=== PATIENT | male | born 1980 | race Caucasian/White ===

== ENCOUNTER 2019-10-29 04:51 | Observation (INO) ==
[2019-10-29] MEDS ORDERED: DiphenhydrAMINE HCL 50 MG/ML VIAL IV STA (05:25)
[2019-10-29 05:36] LABS: Basophils # (auto) 0.02 K/uL (0-0.2); Basophils % (auto) 0.2 %; Eosinophils # (auto) 0.11 K/uL (0-0.5); Hemoglobin 9.4 g/dL (14.0-18.0); Immature Granulocytes # (auto) 0.02 K/uL (0.00-0.02); Immature Granulocytes % (auto) 0.2 %; Lymphocytes % (auto) 29.8 %; Mean Corpuscular Hemoglobin 22.4 pg (25-34); Mean Corpuscular Hgb Conc 29.4 g/dL (32-36); Mean Corpuscular Volume 76.2 fL (80-100); Mean Platelet Volume 10.6 fL (7.4-10.4); Monocytes # (auto) 0.77 K/uL (0.11-0.59); Monocytes % (auto) 7.2 %; Neutrophils # (auto) 6.63 K/uL (1.4-6.5); Neutrophils % (auto) 61.6 %; Platelet Count 300 K/uL (130-400); RDW Coefficient of Variation 14.7 % (11.5-14.5); RDW Standard Deviation 41.2 fL (36.4-46.3); White Blood Count 10.75 K/uL (4.8-10.8)
[2019-10-29 06:05] LABS: Partial Thromboplastin Ratio 0.9; Partial Thromboplastin Time 26.2 Seconds (21.0-31.0); Prothrombin Time 10.5 Seconds (9.0-12.0)
[2019-10-29 06:30] LABS: Alanine Aminotransferase 48 U/L (12-78); Albumin Level 3.1 gm/dl (3.4-5.0); Aspartate Aminotransferase 36 U/L (15-37); BUN Creatinine Ratio 11.1 (10-20); Blood Urea Nitrogen 25 mg/dl (7-18); Carbon Dioxide 23 mmol/L (21-32); Chloride 111 mmol/L (98-107); Creatinine Clr Calc Pharmacy 22.4 ml/min; Est GFR (African American) 40.1; Est GFR (Non-African American) 34.6; Glucose 104 mg/dl (70-99); Lipase 185 U/L (73-393); Potassium 4.1 mmol/L (3.5-5.1); Sodium 140 mmol/L (136-145)
--- NOTE | 2019-10-29 06:31 | XRay Report ---
XR chest 1V portable CLINICAL HISTORY: Chest Pain dyspnea COMPARISON STUDY: 10/29/2019 FINDINGS: The bones soft tissues and hemidiaphragms are normal. The cardiomediastinal silhouette is n ormal. The lungs are clear. The pulmonary vasculature is normal. IMPRESSION: Negative chest. ACT 112: Negative or not required by law. The above report was generated using voice recognition software. It may contain grammatical, syntax or spelling errors. Electronically signed by: Pernell Ruth M.D. 10/29/2019 6:30 AM
[2019-10-29 06:35] LABS: Albumin Globulin Ratio 0.7 (0.9-2); Alkaline Phosphatase 86 U/L (45-117); Bilirubin,Total 0.1 mg/dl (0.2-1); Globulin 4.7 gm/dl (2.5-4.0); Total Protein 7.8 gm/dl (6.4-8.2); Troponin I < 0.015 ng/ml (0-0.045)
--- NOTE | 2019-10-29 06:41 | Emergency Department Note ---
Impression & Plan Substernal chest pain, Allergic reaction ED Provider Note NAME: KHUSHBOO ADHIKARI AGE: 39 SEX: M ARRIVES VIA: Family Vehicle INFORMANT: [Patient] ED PROVIDER(S): Bre Amezquita DO CHIEF COMPLAINT: Substernal chest pain PLAN: [facility]: Stable MEDICAL DECISION MAKING: This is a 39-year-old male patient with a history of kidney disease, hypertension hypercholesterolemia who presents to the emergency department with substernal chest pain. Patient had a normal-appearing EKG and negative initial troponin but had significant anemia. The patient was also suffering from a possible allergic reaction as he had significant edema to both eyes. [facility] and [facility] will evaluate for further management. Triage Nursing notes reviewed and agree them. [Prior medical records reviewed] Vital Signs: reviewed and remarkable for mild hypertension Differential diagnosis: Acute allergic reaction, GERD, and NSTEMI; aortic dissection, PE ER treatment provided: IV Benadryl Diagnostics interpreted by me: ECG: Normal sinus rhythm at [address] segment elevation or signs of ischemia. There is no ectopy Cardiac Monitoring: Normal sinus rhythm at a rate of 90 Laboratory studies: [See below] Imaging studies: As per my interpretation Chest x-ray: No acute pulmonary infiltrates or consolidations. There is no cardiomegaly HPI: 39/M arrives for evaluation of chest. The patient awoke from sleep feeling a tight sensation to his face and chin. He then suddenly developed a onset of chest pain or shortness of breath that he described coming in episodes of stabbing and sharp chest discomfort that lasted between 30 and 45 seconds and then it would be continuously dull in nature. He noted that the shortness of breath was very mild. He then looked in the mirror noticed that his eyelids were swollen. After some time and talking to his he noted that his right arm and right leg were numb and tingly all the time but that seems to have subsided. He does describe starting a new medication yesterday-vitamin D. ROS: See above HPI for pertinent positives & negatives. A total of [10] systems reviewed and were otherwise negative. PAST MEDICAL HISTORY:Stage IIIa kidney failure, hypercholesterolemia, hypertension, depression PAST SURGICAL HISTORY:[See Below] FAMILY HISTORY:The patient's uncle had his first myocardial infarction in his 40s SOCIAL HISTORY:Patient lives with his ; the patient does not drink alcohol but does occasionally smoke HOME MEDICATIONS:See list ALLERGIES:See list VITALS:[See Below] PHYSICAL EXAMINATION: HEENT: Head - normocephalic and atraumatic Pupils are equal, round, and reactive to light. Extraocular eye muscles are intact, and sclera are anicteric. Patient has significant edema to both eyelids nose - moist nasal mucosa without discharge. Mouth - moist buccal mucosa. Oropharynx is nonerythematous and there is no tonsillar exudate or edema noted. Neck: Supple; no cervical lymphadenopathy or JVD Heart: Regular rate and rhythm. There is a normal S1 and S2 with no murmurs, clicks, or gallops appreciated. Lungs: Clear to auscultation bilaterally with no wheezes, rales, or rhonchi. Abdomen: Soft, completely nontender, nondistended, with good bowel sounds. There are no palpable pulsatile masses or hepatosplenomegaly. There is no guarding, rigidity, or rebound noted. Extremities: No evidence of cyanosis, clubbing, or edema. There are easily palpable peripheral pulses. Skin: warm and dry with good turgor and no rashes. ED COURSE: Times/Reassessments: 0520: Patient was evaluated in room C9. A complete history and physical was performed. Laboratory studies were drawn as above. An IV lock was initiated and labs are drawn as above. An order was placed for continuous cardiac monitoring. The patient was in a normal sinus rhythm at a rate of 76. The patient had no known COVID risk factors or exposures. A twelve-lead EKG was obtained. A chest x-ray was obtained. The patient was given IV Benadryl. 0705: I reevaluated the patient at this time and his chest pain is completely resolved and the eyelid swelling has significantly improved. Some time talking to the patient about his family history and the symptoms that he presented with today. I felt he would require further inpatient care because of the chest discomfort that he presented with. I would discuss the case with the [facility] hospitalist group and they can evaluate for further management. Bre Amezquita DO Past Med/Surg History Social History Preferred Language: Maltese Communication Ability: Effective Pastoral Worker Required: No Beliefs That Will Affect Care: None Current Living Situation: Spouse Other Information That Helps Us Care for You: No Feels Safe at Home: Yes Safety Concerns: Feels Safe At This Time Smoking Status: Light tobacco smoker Tobacco Type: cigars ; Do You Dip or Chew Tobacco: No ; Second Hand Exposure: No ; Tobacco Cessation Education Requested by Patient: No Hx Alcohol Use: No Hx Substance Use: No Allergies Allergies Allergy/AdvReac Type Severity Reaction Status Date / Time No Known Allergies Allergy Unverified 10/29/19 05:16 Home Meds Home Medications Medication Instructions Recorded Confirmed amlodipine 5 mg PO DAILY 10/29/19 10/29/19 atenolol 50 mg PO DAILY 10/29/19 10/29/19 atorvastatin 20 mg PO HS 10/29/19 10/29/19 cholecalciferol (vitamin D3) 1,250 mcg PO WK 10/29/19 10/29/19 [Decara] docusate sodium [DOK] 100 mg PO DAILY 10/29/19 10/29/19 duloxetine 20 mg PO BID 10/29/19 10/29/19 gabapentin 300 mg PO TID 10/29/19 10/29/19 Previous Rx's Medication Instructions Recorded pantoprazole 40 mg PO QAM 30 Days #30 tab 10/29/19 Results & Data (ED) Vital Signs Vital Signs - 24 hr 10/29/19 04:58 10/29/19 05:15 10/29/19 05:30 Temperature 36.8 C Temperature Source Oral Pulse Rate 77 81 70 Pulse Rate from SpO2 Sensor 73 Respiratory Rate 13 16 18 Blood Pressure 166/110 H 153/104 H 157/104 H Blood Pressure Mean 128 127 112 Pulse Oximetry 97 95 95 Oxygen Delivery Method Room Air Room Air Room Air Sepsis Recent Fever Within 48 Hours No Sepsis New/Unexplained Change in Mental Status No Sepsis Action Taken by Nursing No Action Required 10/29/19 05:36 10/29/19 05:37 10/29/19 05:45 Temperature Temperature Source Pulse Rate 70 86 Pulse Rate from SpO2 Sensor 86 Respiratory Rate 20 21 Blood Pressure 148/106 H Blood Pressure Mean 117 Pulse Oximetry 95 95 96 Oxygen Delivery Method Room Air Room Air Room Air Sepsis Recent Fever Within 48 Hours Sepsis New/Unexplained Change in Mental Status Sepsis Action Taken by Nursing 10/29/19 06:00 10/29/19 06:16 10/29/19 06:30 Temperature Temperature Source Pulse Rate 90 94 H 75 Pulse Rate from SpO2 Sensor 88 94 H 76 Respiratory Rate 18 17 24 Blood Pressure 135/73 138/89 139/88 Blood Pressure Mean 95 107 97 Pulse Oximetry 96 96 96 Oxygen Delivery Method Room Air Room Air Room Air Sepsis Recent Fever Within 48 Hours Sepsis New/Unexplained Change in Mental Status Sepsis Action Taken by Nursing 10/29/19 06:59 10/29/19 07:00 10/29/19 07:02 Temperature Temperature Source Pulse Rate 80 77 76 Pulse Rate from SpO2 Sensor 80 78 78 Respiratory Rate 22 20 16 Blood Pressure 129/83 122/80 Blood Pressure Mean 90 92 Pulse Oximetry 96 96 95 Oxygen Delivery Method Room Air Room Air Sepsis Recent Fever Within 48 Hours Sepsis New/Unexplained Change in Mental Status Sepsis Action Taken by Nursing 10/29/19 07:35 10/29/19 08:00 10/29/19 08:01 Temperature Temperature Source Pulse Rate 87 75 74 Pulse Rate from SpO2 Sensor 78 72 Respiratory Rate 16 22 19 Blood Pressure 120/68 Blood Pressure Mean 79 Pulse Oximetry 95 96 Oxygen Delivery Method Room Air Room Air Sepsis Recent Fever Within 48 Hours Sepsis New/Unexplained Change in Mental Status Sepsis Action Taken by Nursing 10/29/19 08:02 Temperature Temperature Source Pulse Rate 68 Pulse Rate from SpO2 Sensor 67 Respiratory Rate 20 Blood Pressure Blood Pressure Mean Pulse Oximetry 93 Oxygen Delivery Method Sepsis Recent Fever Within 48 Hours Sepsis New/Unexplained Change in Mental Status Sepsis Action Taken by Nursing Laboratory Data Result diagrams: 10/29/19 05:11 10/29/19 05:38 Lab Results 10/29/19 10/29/19 10/29/19 Range/Units 05:11 05:38 05:38 WBC 10.75 (4.8-10.8) K/uL RBC 4.20 L (4.7-6.1) M/uL Hgb 9.4 L (14.0-18.0) g/dL Hct 32.0 L (42-52) % MCV 76.2 L (80-100) fL MCH 22.4 L (25-34) pg MCHC 29.4 L (32-36) g/dL RDW Std Deviation 41.2 (36.4-46.3) fL RDW Coeff of Lesvia 14.7 H (11.5-14.5) % Plt Count 300 (130-400) K/uL MPV 10.6 H (7.4-10.4) fL Immature Gran % (Auto) 0.2 % Neut % (Auto) 61.6 % Lymph % (Auto) 29.8 % Collier % (Auto) 7.2 % Eos % (Auto) 1.0 % Baso % (Auto) 0.2 % Immature Gran # (Auto) 0.02 (0.00-0.02) K/uL Neut # (Auto) 6.63 H (1.4-6.5) K/uL Lymph # (Auto) 3.20 (1.2-3.4) K/uL Collier # (Auto) 0.77 H (0.11-0.59) K/uL Eos # (Auto) 0.11 (0-0.5) K/uL Baso # (Auto) 0.02 (0-0.2) K/uL PT 10.5 (9.0-12.0) Seconds INR 1.0 (0.9-1.1) APTT 26.2 (21.0-31.0) Seconds PTT Ratio 0.9 Sodium 140 (136-145) mmol/L Potassium 4.1 (3.5-5.1) mmol/L Chloride 111 H (98-107) mmol/L Carbon Dioxide 23 (21-32) mmol/L Anion Gap 6.0 (3-11) BUN 25 H (7-18) mg/dl Creatinine 2.28 H (0.6-1.4) mg/dl Est Cr Clr Drug Dosing 22.4 ml/min Est GFR ( Amer) 40.1 Est GFR (Non-Af Amer) 34.6 BUN/Creatinine Ratio 11.1 (10-20) Glucose 104 H (70-99) mg/dl Calcium 9.0 (8.5-10.1) mg/dl Total Bilirubin 0.1 L (0.2-1) mg/dl AST 36 (15-37) U/L ALT 48 (12-78) U/L Alkaline Phosphatase 86 (45-117) U/L Troponin I < 0.015 (0-0.045) ng/ml Total Protein 7.8 (6.4-8.2) gm/dl Albumin 3.1 L (3.4-5.0) gm/dl Globulin 4.7 H (2.5-4.0) gm/dl Albumin/Globulin Ratio 0.7 L (0.9-2) Triglycerides (0-150) mg/dl Cholesterol (0-200) mg/dl LDL Cholesterol, Calc mg/dl VLDL Cholesterol, Calc mg/dl HDL Cholesterol mg/dl Cholesterol/HDL Ratio Lipase 185 (73-393) U/L 10/29/19 Range/Units 05:38 WBC (4.8-10.8) K/uL RBC (4.7-6.1) M/uL Hgb (14.0-18.0) g/dL Hct (42-52) % MCV (80-100) fL MCH (25-34) pg MCHC (32-36) g/dL RDW Std Deviation (36.4-46.3) fL RDW Coeff of Lesvia (11.5-14.5) % Plt Count (130-400) K/uL MPV (7.4-10.4) fL Immature Gran % (Auto) % Neut % (Auto) % Lymph % (Auto) % Collier % (Auto) % Eos % (Auto) % Baso % (Auto) % Immature Gran # (Auto) (0.00-0.02) K/uL Neut # (Auto) (1.4-6.5) K/uL Lymph # (Auto) (1.2-3.4) K/uL Collier # (Auto) (0.11-0.59) K/uL Eos # (Auto) (0-0.5) K/uL Baso # (Auto) (0-0.2) K/uL PT (9.0-12.0) Seconds INR (0.9-1.1) APTT (21.0-31.0) Seconds PTT Ratio Sodium (136-145) mmol/L Potassium (3.5-5.1) mmol/L Chloride (98-107) mmol/L Carbon Dioxide (21-32) mmol/L Anion Gap (3-11) BUN (7-18) mg/dl Creatinine (0.6-1.4) mg/dl Est Cr Clr Drug Dosing ml/min Est GFR ( Amer) Est GFR (Non-Af Amer) BUN/Creatinine Ratio (10-20) Glucose (70-99) mg/dl Calcium (8.5-10.1) mg/dl Total Bilirubin (0.2-1) mg/dl AST (15-37) U/L ALT (12-78) U/L Alkaline Phosphatase (45-117) U/L Troponin I (0-0.045) ng/ml Total Protein (6.4-8.2) gm/dl Albumin (3.4-5.0) gm/dl Globulin (2.5-4.0) gm/dl Albumin/Globulin Ratio (0.9-2) Triglycerides 221 H (0-150) mg/dl Cholesterol 147 (0-200) mg/dl LDL Cholesterol, Calc 66 mg/dl VLDL Cholesterol, Calc 44 mg/dl HDL Cholesterol 37 mg/dl Cholesterol/HDL Ratio 4 Lipase (73-393) U/L Administered Medications Discontinued Medications Amlodipine Besylate (Norvasc) 5 mg PO DAILY [facility] Stop: 11/28/19 08:59 Last Admin: 10/29/19 11:12 Dose: 5 mg Documented by: [id number] Atenolol (Tenormin) 50 mg PO DAILY [facility] Stop: 11/28/19 08:59 Last Admin: 10/29/19 11:12 Dose: 50 mg Documented by: [id number] Atropine Sulfate (Atropine Sulfate) Confirm Administered Dose 2 mg IV .STK-MED ONE Stop: 10/29/19 12:34 Last Admin: 10/29/19 15:08 Dose: Not Given Documented by: [id number] Diphenhydramine HCl (Benadryl) 50 mg IV NOW STA Stop: 10/29/19 05:26 Last Admin: 10/29/19 05:29 Dose: 50 mg Documented by: [id number] Dobutamine HCl (Dobutrex) Confirm Administered Dose 250 mg IV .STK-MED ONE Stop: 10/29/19 12:34 Last Admin: 10/29/19 15:08 Dose: Not Given Documented by: [id number] Duloxetine HCl (Cymbalta) 20 mg PO BID [facility] Stop: 11/28/19 08:59 Last Admin: 10/29/19 11:12 Dose: 20 mg Documented by: [id number] Gabapentin (Neurontin) 300 mg PO TID [facility] Stop: 11/28/19 08:59 Last Admin: 10/29/19 15:31 Dose: 300 mg Documented by: [id number] Admin: 10/29/19 11:12 Dose: 300 mg Documented by: [id number] Metoprolol Tartrate (Lopressor) Confirm Administered Dose 10 mg IV .STK-MED ONE Stop: 10/29/19 12:34 Last Admin: 10/29/19 15:09 Dose: Not Given Documented by: [id number] [facility]op[facility] S[facility]ix) [facility] Stop: 11/28/19 08:59 Last Admin: 10/29/19 11:13 Dose: 40 mg Documented by: [id number] Discharge Plan Visit Data *Final* Discharge Date/Time: 10/29/19 09:49 Chief Complaint: Chest Pain Stated Complaint: CHEST PAIN ED Provider: Bre Amezquita Discharge Problem: Substernal chest pain, Allergic reaction Patient Disposition: Admitted As Inpatient Condition: Good Discharge Instructions Interventions: ED Discharge Assessment Last Done: 10/29/19 09:49 Discharge Problem: Allergic reaction Qualifiers: Encounter type: initial encounter Qualified Code(s): T78.40XA - Allergy, unspecified, initial encounter
--- NOTE | 2019-10-29 07:22 | Electrocardiogram Report ---
Test Reason : Blood Pressure : / mmHG Vent. Rate : 077 BPM Atrial Rate : 077 BPM P-R Int : 160 ms QRS Dur : 096 ms QT Int : 386 ms P-R-T Axes : -07 019 030 degrees QTc Int : 436 ms Normal sinus rhythm Normal ECG No previous ECGs available Confirmed by Hayder Rowan ([id number]) on 10/29/2019 7:21:35 AM Referred By: REFERRED SELF Confirmed By:Jeremiah Rowan
--- NOTE | 2019-10-29 08:04 | History & Physical Report ---
Date of Service October 29, 2019 Assessment & Plan (1) Chest pain: -39 yo male Patient woke up overnight with chest pain around 2 PM. he reports that sharpness of the pain was alleviated but there was this pressure that remained which persisted and lasted until ED presentation. Also associated symptom of right sided numbness or tingling but this also resolved when in the ED. In the ED, patient had nonischemic appearing EKG with initial negative troponin. He was only given IV Benadryl because of some concern for puffiness of the eye as if some allergy. But patient normal in facial appearance and no pain and Paresthesia symptoms when seen by hospitalist around 7:30 AM. Patient reports history of acid reflux but no vomiting at home. no nausea. no shortness of breath. no fever. no dizziness. no headache. -Family History of uncle with myocardial infarction in the ages of 40s -trend troponin, monitor on telemetry, obtain echocardiogram, cardiology consult -checked lipid panel with LDL 67, continue home dose atorvastatin 20 mg daily Gastroesophageal reflux diseas -he takes over the counter Prilosec at home -continue as pantoprazole while in the hospital Pre-diabetes -reports pred-diabetes, not on diabetes medications at home -check HbA1c Neuropathy -takes gabapentin 300 mg TID primarily for neuropathy of foot -unclear as to cause of right side paraesthesia symptoms when he woke with chest pain. no current right arm symptoms Depression -continue home dose duloxetine Hypertension -continue dose amlodipine 5 mg daily atenolol 500 mg daily Obesity with BMI 43.7 -on statin Tobacco Use -smokes 1 cigar daily, will counselor marriage and family on cutting back use Marijuana Use -reports last marijuana use was weeks ago and does not seem to be cause of recent symptoms at home DVT ppx: SCDs History of Present Illness 39 yo Male Patient woke up overnight with chest pain around 2 PM. he reports that sharpness of the pain was alleviated but there was this pressure that remained which persisted and lasted until ED presentation. Also associated symptom of right sided numbness or tingling but this also resolved when in the ED. In the ED, patient had nonischemic appearing EKG with initial negative troponin. He was only given IV Benadryl because of some concern for puffiness of the eye as if some allergy. But patient normal in facial appearance and no pain and Paresthesia symptoms when seen by hospitalist around 7:30 AM. Patient reports history of acid reflux but no vomiting at home. no nausea. no shortness of breath. no fever. no dizziness. no headache. Patient reports he smokes 1 cigar a day. Last marijuana use was weeks ago. He rarely drinks alcohol Family History of uncle with myocardial infarction in the ages of 40s Allergy History: patient denies known allergies to any particular foods or medications Primary Care Provider: Prasad Freeman MD Allergies Allergy/AdvReac Type Severity Reaction Status Date / Time No Known Allergies Allergy Unverified 10/29/19 05:16 Home Medications Home Medications Medication Instructions Recorded Confirmed Type amlodipine 5 mg PO DAILY 10/29/19 10/29/19 History atenolol 50 mg PO DAILY 10/29/19 10/29/19 History atorvastatin 20 mg PO HS 10/29/19 10/29/19 History cholecalciferol (vitamin D3) 1,250 mcg PO WK 10/29/19 10/29/19 History [Decara] docusate sodium [DOK] 100 mg PO DAILY 10/29/19 10/29/19 History duloxetine 20 mg PO BID 10/29/19 10/29/19 History gabapentin 300 mg PO TID 10/29/19 10/29/19 History Past Med/Surg History Social History Preferred Language: Syriac Communication Ability: Effective Monument Stonecutter Required: No Beliefs That Will Affect Care: None Current Living Situation: Spouse Other Information That Helps Us Care for You: No Feels Safe at Home: Yes Safety Concerns: Feels Safe At This Time Smoking Status: Light tobacco smoker Tobacco Type: cigars ; Do You Dip or Chew Tobacco: No ; Second Hand Exposure: No ; Tobacco Cessation Education Requested by Patient: No Hx Alcohol Use: No Hx Substance Use: No Review of Systems Review of Systems: All systems reviewed & are unremarkable except as noted in Subjective Physical Exam Constitutional: + obese Eyes: PERRL, conjunctivae normal, anicteric sclerae EOM intact bilaterally ENMT: external ear and nose normal, oropharynx normal Neck: normal visual inspection Respiratory: normal respiratory effort, lungs clear to auscultation Cardiovascular: Rate/Rhythm: regular rate and regular rhythm Gastrointestinal (Abdomen): normal bowel sounds, soft, nontender, no h epatosplenomegaly Musculoskeletal: Head/Neck/Chest: normocephalic and head atraumatic Neurologic: PERRL, EOMI, accommodation nl, no face palsy, no dysarthria moves all extremities Psychiatric: A+Ox3, euthymic affect Results & Data Results & Data ([facility]) Vital Signs (Past 12 Hours) Vital Signs Temp Pulse Resp BP Pulse Ox 10/29/19 06:30 75 24 139/88 96 10/29/19 06:16 94 H 17 138/89 96 10/29/19 06:00 90 18 135/73 96 10/29/19 05:45 86 21 148/106 H 96 10/29/19 05:37 95 10/29/19 05:36 70 20 95 10/29/19 05:30 70 18 157/104 H 95 10/29/19 05:15 81 16 153/104 H 95 10/29/19 04:58 36.8 C 77 13 166/110 H 97
[2019-10-29] MEDS ORDERED: ACETAMINOPHEN 325 MG TAB PO PRN (08:06)
[2019-10-29] MEDS ORDERED: MoRPHine SULFATE 2 MG/ML CARP IV PRN (08:06)
[2019-10-29 08:31] LABS: Chol HDL Ratio 4; Cholesterol 147 mg/dl (0-200); HDL Cholesterol 37 mg/dl; LDL Cholesterol Calculated 66 mg/dl; Triglycerides 221 mg/dl (0-150); VLDL Cholesterol 44 mg/dl
[2019-10-29] MEDS ORDERED: ATENOLOL 50 MG TABLET PO SCH (09:00)
[2019-10-29] MEDS ORDERED: DULOXETINE HCL 20 MG CAP PO SCH (09:00)
[2019-10-29] MEDS ORDERED: AMLODIPINE BESYLATE 5 MG TAB PO SCH (09:00)
[2019-10-29] MEDS ORDERED: PANTOprazole 40 MG TAB PO SCH (09:00)
[2019-10-29] MEDS: GABAPENTIN 300 MG CAP PO SCH ×2 (11:12→15:31)
[2019-10-29 12:18] LABS: Estimated Average Glucose 126 mg/dl
[2019-10-29] MEDS ORDERED: ATROPINE SULFATE 0.1 MG/ML 10ML SYR IV ONE (12:33)
[2019-10-29] MEDS ORDERED: METOPROLOL TARTRATE 1 MG/ML VIAL IV ONE (12:33)
[2019-10-29] MEDS ORDERED: DOBUTamine HCL 12.5 MG/ML 20 ML VIAL IV ONE (12:33)
--- NOTE | 2019-10-29 12:53 | Cardiology Consultation ---
Date of Consultation October 29, 2019 Assessment & Plan (1) Chest pain: The patient underwent a dobutamine stress echocardiogram that was nonischemic. He had a normal blood pressure response to dobutamine as well. No further cardiac testing or intervention is necessary at this time. Okay to discharge to home from a cardiac standpoint. No outpatient cardiac follow-up necessary but recommended he continue to follow- up with his PCP, nephrology and sleep medicine as recommended. (2) CKD (chronic kidney disease): (3) SHERLY (obstructive sleep apnea): (4) Morbid obesity: (5) Anemia of chronic disease: (6) Peripheral neuropathy: History of Present Illness Reason for Consultation: Chest pain Requesting Physician: Dr. Freeman Attending Physician: Stas Freeman MD History of Present Illness I saw Mr. Owusu in consultation today October 29, 2019. He is a very pleasant 39-year-old gentleman who presented to [facility] on 10/29/2019 with complaints of chest pain. He states he was in his normal state of health prior to going to bed last evening but then woke at 3 AM with a sharp stabbing chest pain. He states it was midsternal and seemed to radiate across his right precordium. This was associated with some right arm numbness and tingling. He denied any associated diaphoresis, shortness of breath, nausea, lightheadedness, dizziness or syncope. He denies any previously similar episodes. He states that when the discomfort was occurring he was rubbing his chest to make it feel little bit better. Upon arrival to the emergency department his discomfort has resolved on its own. His initial work-up was unremarkable and after a second negative troponin a dobutamine stress echocardiogram was performed. Allergies Allergy/AdvReac Type Severity Reaction Status Date / Time No Known Allergies Allergy Unverified 10/29/19 05:16 Home Medications Home Medications Medication Instructions Recorded Confirmed Type amlodipine 5 mg PO DAILY 10/29/19 10/29/19 History atenolol 50 mg PO DAILY 10/29/19 10/29/19 History atorvastatin 20 mg PO HS 10/29/19 10/29/19 History cholecalciferol (vitamin D3) 1,250 mcg PO WK 10/29/19 10/29/19 History [Decara] docusate sodium [DOK] 100 mg PO DAILY 10/29/19 10/29/19 History duloxetine 20 mg PO BID 10/29/19 10/29/19 History gabapentin 300 mg PO TID 10/29/19 10/29/19 History Patient History Social History Preferred Language: [place]ib[place]ian Communication Ability: Effective Customs Verifier Required: No Beliefs That Will Affect Care: None Current Living Situation: Spouse Other Information That Helps Us Care for You: No Feels Safe at Home: Yes Safety Concerns: Feels Safe At This Time Smoking Status: Light tobacco smoker Tobacco Type: cigars ; Do You Dip or Chew Tobacco: No ; Second Hand Exposure: No ; Tobacco Cessation Education Requested by Patient: No Hx Alcohol Use: No Hx Substance Use: No Review of Systems Review of Systems: All systems reviewed & are unremarkable except as noted in HPI & below Physical Exam Physical Exam: General: Awake, alert and oriented x 3. No acute distress. HEENT: Normocephalic, atraumatic. Pupils equal, round and reactive to light and accommodation. Extraocular muscles are intact. Anicteric sclera. Moist mucous membranes. Neck: No JVD. No bruit. Cardiovascular: Regular. Positive S-4. Normal S-1 and S-2. No S-3. No murmurs or rubs. Pulmonary: Clear to auscultation B/L. No rales, rhonchi or wheezing Abdomen: Bowel sounds x 4, soft. No rebound, guarding or tenderness. No organomegaly. Extremities: No clubbing, cyanosis or edema. +2 pedal pulses bilaterally. Skin: Warm and dry. Results & Data ([facility]) Vital Signs (Past 12 Hours) Vital Signs Temp Pulse Pulse Resp BP BP Pulse Ox 10/29/19 11:35 36.6 C 72 18 156/92 H 97 10/29/19 10:00 36.7 C 74 18 144/89 H 95 10/29/19 09:30 22 107/66 99 10/29/19 09:01 80 23 135/81 98 10/29/19 09:00 68 18 10/29/19 08:30 88 18 127/73 95 10/29/19 08:02 68 20 93 10/29/19 08:01 74 19 120/68 96 10/29/19 08:00 75 22 95 10/29/19 07:35 87 16 10/29/19 07:02 76 16 95 10/29/19 07:00 77 20 122/80 96 10/29/19 06:59 80 22 129/83 96 10/29/19 06:30 75 24 139/88 96 10/29/19 06:16 94 H 17 138/89 96 10/29/19 06:00 90 18 135/73 96 10/29/19 05:45 86 21 148/106 H 96 10/29/19 05:37 95 10/29/19 05:36 70 20 95 10/29/19 05:30 70 18 157/104 H 95 10/29/19 05:15 81 16 153/104 H 95 10/29/19 04:58 36.8 C 77 13 166/110 H 97 Laboratory Results Laboratory Results - last 24 hr 10/29/19 10/29/19 10/29/19 05:11 05:38 05:38 WBC 10.75 RBC 4.20 L Hgb 9.4 L Hct 32.0 L MCV 76.2 L MCH 22.4 L MCHC 29.4 L RDW Std Deviation 41.2 RDW Coeff of Lesvia 14.7 H Plt Count 300 MPV 10.6 H Immature Gran % (Auto) 0.2 Neut % (Auto) 61.6 Lymph % (Auto) 29.8 [place] % (Auto) 7.2 Eos % (Auto) 1.0 Baso % (Auto) 0.2 Immature Gran # (Auto) 0.02 Neut # (Auto) 6.63 H Lymph # (Auto) 3.20 [place] # (Auto) 0.77 H Eos # (Auto) 0.11 Baso # (Auto) 0.02 PT 10.5 INR 1.0 APTT 26.2 PTT Ratio 0.9 Sodium 140 Potassium 4.1 Chloride 111 H Carbon Dioxide 23 Anion Gap 6.0 BUN 25 H Creatinine 2.28 H Est Cr Clr Drug Dosing 22.4 Est GFR ( Amer) 40.1 Est GFR (Non-Af Amer) 34.6 BUN/Creatinine Ratio 11.1 Glucose 104 H Estimat Average Glucose Hemoglobin A1c Calcium 9.0 Total Bilirubin 0.1 L AST 36 ALT 48 Alkaline Phosphatase 86 Troponin I < 0.015 Total Protein 7.8 Albumin 3.1 L Globulin 4.7 H Albumin/Globulin Ratio 0.7 L Triglycerides Cholesterol LDL Cholesterol, Calc VLDL Cholesterol, Calc HDL Cholesterol Cholesterol/HDL Ratio Lipase 185 10/29/19 10/29/19 10/29/19 05:38 11:47 11:47 WBC RBC Hgb Hct MCV MCH MCHC RDW Std Deviation RDW Coeff of Lesvia Plt Count MPV Immature Gran % (Auto) Neut % (Auto) Lymph % (Auto) [place] % (Auto) Eos % (Auto) Baso % (Auto) Immature Gran # (Auto) Neut # (Auto) Lymph # (Auto) [place] # (Auto) Eos # (Auto) Baso # (Auto) PT INR APTT PTT Ratio Sodium Potassium Chloride Carbon Dioxide Anion Gap BUN Creatinine Est Cr Clr Drug Dosing Est GFR ( Amer) Est GFR (Non-Af Amer) BUN/Creatinine Ratio Glucose Estimat Average Glucose 126 Hemoglobin A1c 6.0 H Calcium Total Bilirubin AST ALT Alkaline Phosphatase Troponin I < 0.015 Total Protein Albumin Globulin Albumin/Globulin Ratio Triglycerides 221 H Cholesterol 147 LDL Cholesterol, Calc 66 VLDL Cholesterol, Calc 44 HDL Cholesterol 37 Cholesterol/HDL Ratio 4 Lipase Medications Administered Current Inpatient Medications Acetaminophen (Tylenol) 325 mg PO Q6H PRN PRN Reason: Pain or Fever Stop: 11/28/19 08:14 Amlodipine Besylate (Norvasc) 5 mg PO DAILY KRIS Stop: 11/28/19 08:59 Last Admin: 10/29/19 11:12 Dose: 5 mg Documented by: Atenolol (Tenormin) 50 mg PO DAILY KRIS Stop: 11/28/19 08:59 Last Admin: 10/29/19 11:12 Dose: 50 mg Documented by: Atorvastatin Calcium (Lipitor) 20 mg PO HS KRIS Stop: 11/28/19 20:59 Duloxetine HCl (Cymbalta) 20 mg PO BID KRIS Stop: 11/28/19 08:59 Last Admin: 10/29/19 11:12 Dose: 20 mg Documented by: Gabapentin (Neurontin) 300 mg PO TID KRIS Stop: 11/28/19 08:59 Last Admin: 10/29/19 11:12 Dose: 300 mg Documented by: Morphine Sulfate (Morphine Sulfate) 2 mg IV Q8H PRN PRN Reason: severe chest pain Stop: 11/12/19 08:05 Pantoprazole Sodium (Protonix) 40 mg PO QAM KRIS Stop: 11/28/19 08:59 Last Admin: 10/29/19 11:13 Dose: 40 mg Documented by:
--- NOTE | 2019-10-29 17:58 | Hospitalist Progress Note ---
Date of Service October 29, 2019 Assessment & Plan (1) Chest pain: -39 yo male Patient woke up overnight with chest pain around 2 PM. he reports that sharpness of the pain was alleviated but there was this pressure that remained which persisted and lasted until ED presentation. Also associated symptom of right sided numbness or tingling but this also resolved when in the ED. In the ED, patient had nonischemic appearing EKG with initial negative troponin. He was only given IV Benadryl because of some concern for puffiness of the eye as if some allergy. But patient normal in facial appearance and no pain and Paresthesia symptoms when seen by hospitalist around 7:30 AM. Patient reports history of acid reflux but no vomiting at home. no nausea. no shortness of breath. no fever. no dizziness. no headache. -Family History of uncle with myocardial infarction in the ages of 40s Chest pain Gastroesophageal reflux disease hypertension Chronic Kidney Disease Stage III -trend troponin, monitor on telemetry, obtain echocardiogram, cardiology consult -checked lipid panel with LDL 67, continue home dose atorvastatin 20 mg daily The patient underwent a dobutamine stress echocardiogram that was nonischemic. He had a normal blood pressure response to dobutamine as well. No further cardiac testing or intervention is necessary at this time. Okay to discharge to home from a cardiac standpoint. No outpatient cardiac follow-up necessary but recommended he continue to follow- up with his PCP, nephrology and sleep medicine as recommended. Gastroesophageal reflux disease -he takes over the counter Prilosec at home -continue as pantoprazole while in the hospital discharge medication of pantoprazole sent electronically to [address] [address] Pre-diabetes -reports pred-diabetes, not on diabetes medications at home -check HbA1c Neuropathy -takes gabapentin 300 mg TID primarily for neuropathy of foot -unclear as to cause of right side paraesthesia symptoms when he woke with chest pain. no current right arm symptoms Depression -continue home dose duloxetine Hypertension -continue dose amlodipine 5 mg daily atenolol 50 mg daily Obesity with BMI 43.7 -on statin Tobacco Use -smokes 1 cigar daily, will breastfeeding peer counselor on cutting back use Marijuana Use -reports last marijuana use was weeks ago and does not seem to be cause of recent symptoms at home DVT ppx: SCDs Admission and Anticipated Discharge Date Admission Date: October 29, 2019 Review of Systems Review of Systems: All systems reviewed & are unremarkable except as noted in Subjective Physical Exam Constitutional: + obese Eyes: PERRL, conjunctivae normal, anicteric sclerae EOM intact bilaterally ENMT: external ear and nose normal, oropharynx normal Neck: normal visual inspection Respiratory: normal respiratory effort, lungs clear to auscultation Cardiovascular: Rate/Rhythm: regular rate and regular rhythm Gastrointestinal (Abdomen): normal bowel sounds, soft, nontender, no hepatosplenomegaly Musculoskeletal: Head/Neck/Chest: normocephalic and head atraumatic Neurologic: PERRL, EOMI, accommodation nl, no face palsy, no dysarthria moves all extremities Psychiatric: A+Ox3, euthymic affect Results & Data Results & Data ([facility]) Vital Signs (Past 12 Hours) Vital Signs Temp Pulse Pulse Pulse Resp BP BP 10/29/19 16:14 71 10/29/19 15:00 36.6 C 73 18 145/88 H 10/29/19 11:35 36.6 C 72 18 156/92 H 10/29/19 10:00 36.7 C 74 18 144/89 H 10/29/19 09:30 22 107/66 10/29/19 09:01 80 23 135/81 10/29/19 09:00 68 18 10/29/19 08:30 88 18 127/73 10/29/19 08:02 68 20 10/29/19 08:01 74 19 120/68 10/29/19 08:00 75 22 10/29/19 07:35 87 16 10/29/19 07:02 76 16 10/29/19 07:00 77 20 122/80 10/29/19 06:59 80 22 129/83 10/29/19 06:30 75 24 139/88 10/29/19 06:16 94 H 17 138/89 10/29/19 06:00 90 18 135/73 Pulse Ox 10/29/19 16:14 10/29/19 15:00 96 10/29/19 11:35 97 10/29/19 10:00 95 10/29/19 09:30 99 10/29/19 09:01 98 10/29/19 09:00 10/29/19 08:30 95 10/29/19 08:02 93 10/29/19 08:01 96 10/29/19 08:00 95 10/29/19 07:35 10/29/19 07:02 95 10/29/19 07:00 96 10/29/19 06:59 96 10/29/19 06:30 96 10/29/19 06:16 96 10/29/19 06:00 96
--- NOTE | 2019-10-29 18:05 | Discharge Summary ---
Date of Service October 29, 2019 Admission HPI Per Admitting Provider 39 yo Male Patient woke up overnight with chest pain around 2 PM. he reports that sharpness of the pain was alleviated but there was this pressure that remained which persisted and lasted until ED presentation. Also associated symptom of right sided numbness or tingling but this also resolved when in the ED. In the ED, patient had nonischemic appearing EKG with initial negative troponin. He was only given IV Benadryl because of some concern for puffiness of the eye as if some allergy. But patient normal in facial appearance and no pain and Paresthesia symptoms when seen by hospitalist around 7:30 AM. Patient repo rts history of acid reflux but no vomiting at home. no nausea. no shortness of breath. no fever. no dizziness. no headache. Patient reports he smokes 1 cigar a day. Last marijuana use was weeks ago. He rarely drinks alcohol Family History of uncle with myocardial infarction in the ages of 40s Allergy History: patient denies known allergies to any particular foods or medications Principal Diagnosis Chest pain Gastroesophageal reflux disease hypertension Chronic Kidney Disease Stage III Discharge Exam Constitutional WD/WN, vitals as above Eyes PERRL, conjunctivae normal, anicteric sclerae EOM intact bilaterally ENMT external ear and nose normal, oropharynx normal Neck trachea midline, no thyromegaly normal visual inspection Respiratory normal respiratory effort, lungs clear to auscultation Cardiovascular Rate/Rhythm: regular rate and regular rhythm Gastrointestinal (Abdomen) normal bowel sounds, soft, nontender, no hepatosplenomegaly Musculoskeletal Head/Neck/Chest: normocephalic and head atraumatic Neurologic PERRL, EOMI, accommodation nl, no face palsy, no dysarthria CN's II-XI intact bilaterally Psychiatric A+Ox3, euthymic affect Discharge Data Allergies Allergy/AdvReac Type Severity Reaction Status Date / Time No Known Allergies Allergy Unverified 10/29/19 05:16 Consultations 10/29/19 07:28 ED Decision to Admit Stat 10/29/19 08:04 Consult Cardiology Routine Hospital Course (1) Chest pain: -39 yo male Patient woke up overnight with chest pain around 2 PM. he reports that sharpness of the pain was alleviated but there was this pressure that remained which persisted and lasted until ED presentation. Also associated symptom of right sided numbness or tingling but this also resolved when in the ED. In the ED, patient had nonischemic appearing EKG with initial negative troponin. He was only given IV Benadryl because of some concern for puffiness of the eye as if some allergy. But patient normal in facial appearance and no pain and Paresthesia symptoms when seen by hospitalist around 7:30 AM. Patient reports history of acid reflux but no vomiting at home. no nausea. no shortness of breath. no fever. no dizziness. no headache. -Family History of uncle with myocardial infarction in the ages of 40s -checked lipid panel with LDL 67, continue home dose atorvastatin 20 mg daily -no acute telemetry events, troponins bnegative -The patient underwent a dobutamine stress echocardiogram that was nonischemic. He had a normal blood pressure response to dobutamine as well. No further cardiac testing or intervention is necessary at this time. Okay to discharge to home from a cardiac standpoint. No outpatient cardiac follow-up necessary but recommended he continue to follow- up with his PCP, nephrology and sleep medicine as recommended. Gastroesophageal reflux disease -he takes over the counter Prilosec at home -continue as pantoprazole while in the hospital, discharge medication of pantoprazole sent electronically to [address] [id number] [address] of orilosec CKD stage III -chronic Pre-diabetes -reports pred-diabetes, not on diabetes medications at home -HbA1c 6 Neuropathy -takes gabapentin 300 mg TID primarily for neuropathy of foot -unclear as to cause of right side paraesthesia symptoms when he woke with chest pain. no current right arm symptoms Depression -continue home dose duloxetine Hypertension -continue dose amlodipine 5 mg daily atenolol 50 mg daily Obesity with BMI 43.7 -on statin Tobacco Use -smokes 1 cigar daily, he is counseled to quit and he plans to quit. he does not want nicotine patches Marijuana Use -reports last marijuana use was weeks ago and does not seem to be cause of recent symptoms at home Total Time Total Time Spent Total Time Spent (In Minutes): 40 minutes Discharge Plan Discharge Items Patient Disposition: Home - Self-Care Reason For Visit: CHEST PAIN Discharge Diagnosis: Chest pain Gastroesophageal reflux disease hypertension Chronic Kidney Disease Stage III Condition on Discharge: Good Activity: Resume your previous activity Non-emergency contact: Primary Care Provider Call non-emergency contact if: you have any medication questions Follow-up/Referrals: Prasad Freeman MD [Primary Care Provider] - Diet: Regular Addtl Attending Provider Instructions: The patient underwent a dobutamine stress echocardiogram that was nonischemic. He had a normal blood pressure response to dobutamine as well. No further cardiac testing or intervention is necessary at this time. Okay to discharge to home from a cardiac standpoint. No outpatient cardiac follow-up necessary but recommended he continue to follow- up with his PCP, nephrology and sleep medicine as recommended. discharge medication of pantoprazole sent electronically to [address] [address] Pending Studies at Discharge: No Stand-Alone Forms: My [facility] [employer], Smoking Cessation Medications and DC Order Prescriptions: New pantoprazole 40 mg Tablet,Delayed Release (Dr/Ec) 40 mg PO QAM 30 Days Qty: 30 RF: 0 Continued atorvastatin 20 mg Tablet 20 mg PO HS RF: 0 amlodipine 5 mg Tablet 5 mg PO DAILY RF: 0 docusate sodium [DOK] 100 mg Capsule 100 mg PO DAILY RF: 0 gabapentin 300 mg Capsule 300 mg PO TID RF: 0 atenolol 50 mg Tablet 50 mg PO DAILY RF: 0 duloxetine 20 mg Capsule,Delayed Release(Dr/Ec) 20 mg PO BID RF: 0 cholecalciferol (vitamin D3) [Decara] 1,250 mcg (50,000 unit) Capsule 1,250 mcg PO WK RF: 0 Discharge Orders: Discharge Order (Routine); Ordered 10/29/19 Ordered By: Stas Thomson/Other Patient Handouts: Prediabetes, A1C Admission Data Admit Date/Time: 10/29/19 08:09 Attending Provider: Stas Freeman Admit Provider: Stas Freeman Primary Care Provider: Prasad Freeman Other Providers: Stas Freeman ; Bro Zimmer Other Interventions: Discharge Summary Assessment (RN) Last Done: 10/29/19 18:01
[2019-10-29] MEDS ORDERED: ATORVASTATIN 20 MG TAB PO SCH (21:00)
== END 2019-10-29 18:33 | disposition home or self-care (01) ==
LOC: 2N 04:51 → ED 04:51 → 2N 09:49